=== PATIENT | female | born 1955 | race Two or more races ===

== ENCOUNTER 2024-06-16 16:14 | Emergency (ER) | payer OTHER ==
[~2024-06-16] VITALS: Ht 162.6 cm; Wt 69.9 kg
[2024-06-16] MEDS ORDERED: ANALPRAM HC 2.530 GM RECTAL (19:00)
[2024-06-16] MEDS ORDERED: DEXAMETHASONE SODIUM PHOSPHATE 4 MG/ML VIAL ONE (19:03)
[2024-06-16] MEDS ORDERED: DEXAMETHASONE SODIUM PHOSP/PF 10 MG/ML VIAL IJ ONE (19:15)
== END 2024-06-16 19:10 | disposition home or self-care (01) ==
LOC: ER 16:15
DX: R53.81 Other malaise (principal); K64.9 Unspecified hemorrhoids; Z88.2 Allergy status to sulfonamides